=== PATIENT | male | born 1975 | race African-American/Black ===

== ENCOUNTER 2017-08-01 13:59 | Emergency (ER) | payer OTHER ==
[2017-08-01] MEDS ORDERED: Ketorolac Tromethamine 30 MG/ML VIAL ONE (16:11)
== END 2017-08-01 16:32 | disposition home or self-care (01) ==
LOC: ERS 13:59
DX: J06.9 Acute upper respiratory infection, unspecified (principal); G47.30 Sleep apnea, unspecified; F17.210 Nicotine dependence, cigarettes, uncomplicated
CPT/HCPCS: 96372; J1885

== ENCOUNTER 2019-06-21 13:54 | Observation (INO) | payer OTHER, SELFPAY ==
[2019-06-21 14:36] LABS: Bacteria/HPF None Seen HPF (None Seen); Bilirubin Negative (Negative); Blood, Urine Negative (Negative); Clarity Clear (Clear); Glucose, Urine (Dipstick) Normal (Negative); Leukocyte 25 Leu/uL (Negative); Nitrite Negative (Negative); Protein, Urine (Dipstick) Negative (Neg-Trace); RBC/HPF 0-3 HPF (0-3); Squamous Epithelial 0-3 HPF (0-3); Urobilinogen Normal mg/dL (Less than 2)
[2019-06-21] MEDS ORDERED: Aspirin Chewable 81 MG TAB ONE ×2 (17:45→17:46)
[2019-06-21] MEDS ORDERED: Nitroglycerin 0.4 MG TAB 1 EACH ONE (17:46)
--- NOTE | 2019-06-21 17:52 | RAD ---
Exam: Chest one view HISTORY:Right-sided chest pain, x1.5 weeks. Comparison: 08/30/2016 FINDINGS: Cardiac silhouette: Normal Aorta: Unremarkable Pulmonary vessels: Normal Costophrenic angles: Clear LUNGS: No masses or consolidation. Pneumothorax: None Osseous abnormalities: None IMPRESSION: No acute cardiopulmonary process.
[2019-06-21 18:01] LABS: #Basophils 0.1 thou/uL (0.0-0.2); #Eosinphils 0.5 thou/uL (0.0-0.7); #Lymphocytes 2.2 thou/uL (1.20-3.40); #Monocytes 0.8 thou/uL (0.11-0.59); #Neutrophils 4.9 thou/uL (1.40-6.50); %Basophils 0.6 % (0.0-1.0); %Eosinophils 5.9 % (0.0-10.0); %Lymphocytes 26.5 % (21.0-51.0); Hemoglobin 13.8 g/dL (14.0-18.0); Mean Corpuscular HGB CONC 31.3 g/dL (32.0-36.0); Mean Corpuscular Hemoglobin 28.5 pg (27.0-31.0); Mean Corpuscular Volume 91.1 fL (78.0-98.0); Mean Platelet Volume 7.9 fL (7.4-10.4); Platelet Count 256 thou/uL (130-400); RBC Distribution Width 11.3 % (11.5-14.5); Red Blood Cell (RBC) Count 4.83 mill/uL (4.70-6.10); White Blood Cell (WBC) Count 8.4 thou/uL (4.8-10.8)
[2019-06-21 18:20] LABS: ALT (SGPT) 23 U/L (8-55); AST (SGOT) 23 U/L (5-34); Albumin 4.3 g/dL (3.5-5.0); Alkaline Phosphatase 113 U/L (40-110); Anion Gap 11 mmol/L (10-20); BUN (Urea Nitrogen) 11 mg/dL (8.9-20.6); Bilirubin, Total 0.7 mg/dL (0.2-1.2); Calc. Creatinine Clearance 0 mL/min (70-130); Calcium 9.2 mg/dL (7.8-10.44); Carbon Dioxide 26 mmol/L (22-29); Chloride 106 mmol/L (98-107); Estimated GFR-MDRD Greater than 90; Globulin 3.1 g/dL (2.4-3.5); Glucose 86 mg/dL (70-105); Potassium 4.1 mmol/L (3.5-5.1); Protein, Total 7.4 g/dL (6.0-8.3); Sodium 139 mmol/L (136-145)
--- NOTE | 2019-06-21 18:34 | CT ---
Exam: Head CT without contrast HISTORY: Pain. COMPARISON: 09/03/2013 FINDINGS: Hemorrhage: No intraparenchymal hemorrhage or extra-axial hematoma. Brain parenchyma: Cortical casanova-white matter differentiation is preserved. No mass effect or midline shift. Basilar cisterns are patent. Ventricular system: Ventricles and sulci are patent and symmetric. Calvarium: Intact. Sinuses and mastoid air cells: Opacification the right maxillary sinus and mild mucosal thickening of the right ethmoid air cells. Right maxillary sinus opacification is noted on the previous exam. IMPRESSION: 1. No acute intracranial process. 2. Sinus opacification as above.
--- NOTE | 2019-06-21 19:31 | CT ---
Exam: Abdomen CT without contrast Pelvic CT without contrast HISTORY: Right-sided abdominal pain. Pain after urination. COMPARISON: None FINDINGS: Abdomen CT: Lung bases:Extensive bullous change in the lung bases Heart size: Normal heart size. No pericardial fluid Aorta: Normal caliber Solid organs: Limited evaluation by the lack of IV contrast. Grossly no solid organ abnormality Lymph nodes: No gastrohepatic, retrocrural or periportal lymphadenopathy Gallbladder: Unremarkable Mesentery: No mass, lymphadenopathy, free air or free fluid Kidneys: Bilaterally, no hydronephrosis, nephrolithiasis or perinephric fat stranding. Bilateral uret ers have a normal caliber. No hydroureter, periureteral fat stranding or ureterolithiasis. Alimentary canal: Limited evaluation by the lack of oral contrast. No evidence of small bowel obstruc tion. Unremarkable ileocecal junction. Scattered fecal material in a nondistended, nondilated colon. Diverticulosis, without diverticulitis. Normal caliber appendix. CT PELVIS: No mass, adenopathy, free air or free fluid. Unremarkable prostate gland. Urinary bladder: Decompressed urinary bladder, limiting evaluation Osseous structures: No lytic or blastic lesions. Vacuum disc phenomenon at the lumbosacral junction w ith chronic changes in the endplates. IMPRESSION: 1. No evidence of obstructive uropathy. 2. Normal caliber appendix. 3. Bullous change in the lung bases.
[2019-06-21 21:19] LABS: Troponin I 0.011 ng/mL (< 0.028)
[2019-06-21 22:55] VITALS: BMI 50.4
[2019-06-22] MEDS ORDERED: Nitroglycerin 0.4 MG TAB (25 Tab Bottle) ONE (06:11)
[2019-06-22] MEDS ORDERED: Acetaminophen 325 MG TAB PO PRN (09:26)
[2019-06-22] MEDS ORDERED: Ondansetron PF 4 MG/2 ML Vial IVP PRN (09:26)
[2019-06-22] MEDS ORDERED: Nitroglycerin 0.4 MG TAB (25 Tab Bottle) SL PRN (09:35)
--- NOTE | 2019-06-22 10:46 | ULT ---
US Abdominal: 06/22/2019 9:28 AM CLINICAL HISTORY: Abdominal pain. STUDY: Complete abdominal ultrasound COMPARISON: None. FINDINGS: Liver: Size: Normal. Echogenicity: Normal. Contour: Smooth. Mass: None. Common bile duct: 5 mm Gallbladder: Normal. Pancreas: Head, body, and tail appear normal. Inferior vena cava: Normal in caliber Aorta: Normal in caliber Spleen: No focal lesions. Spleen measuring 11.0 cm in length. Right kidney: No pelvicalyceal dilatation. Right kidney measuring 11.8 cm in length. Left kidney: No pelvicalyceal dilatation. Left kidney measuring 11.1 cm in length. 2.3 cm left renal cyst IMPRESSION: Left renal cyst
[2019-06-22] MEDS ORDERED: Regadenoson 0.4 MG/5 ML SYRINGE ONE (15:09)
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
[2019-06-22] MEDS: Mometasone/Formoterol 120 PUFF INHALER INH SCH (19:31)
[2019-06-22] MEDS ORDERED: FLU VACC QS2019-20(6MOS UP)/PF 60 MCG/0.5 ML SYRINGE IM ONE (21:00)
[2019-06-23 05:10] LABS: #Eosinphils 0.4 thou/uL (0.0-0.7); #Lymphocytes 1.8 thou/uL (1.20-3.40); #Monocytes 0.6 thou/uL (0.11-0.59); #Neutrophils 3.3 thou/uL (1.40-6.50); %Basophils 0.8 % (0.0-1.0); %Eosinophils 6.8 % (0.0-10.0); %Lymphocytes 29.6 % (21.0-51.0); %Monocytes 9.4 % (0.0-10.0); %Neutrophils 53.5 % (42.0-75.0); Hemoglobin 14.5 g/dL (14.0-18.0); Mean Corpuscular HGB CONC 32.2 g/dL (32.0-36.0); Mean Corpuscular Hemoglobin 29.4 pg (27.0-31.0); Mean Corpuscular Volume 91.6 fL (78.0-98.0); Platelet Count 243 thou/uL (130-400); RBC Distribution Width 11.3 % (11.5-14.5); Red Blood Cell (RBC) Count 4.93 mill/uL (4.70-6.10); White Blood Cell (WBC) Count 6.2 thou/uL (4.8-10.8)
[2019-06-23 05:26] LABS: Anion Gap 12 mmol/L (10-20); BUN (Urea Nitrogen) 10 mg/dL (8.9-20.6); Calc. Creatinine Clearance 247 mL/min (70-130); Carbon Dioxide 22 mmol/L (22-29); Chloride 108 mmol/L (98-107); Estimated GFR-MDRD Greater than 90; Glucose 88 mg/dL (70-105); Potassium 4.6 mmol/L (3.5-5.1); Sodium 137 mmol/L (136-145)
[2019-06-23] MEDS: Mometasone/Formoterol 120 PUFF INHALER INH SCH (06:56)
[2019-06-23] MEDS ORDERED: Aspirin 325 MG TAB PO SCH (09:00)
[2019-06-23] MEDS ORDERED: Enoxaparin Sodium 40 MG/0.4 ML SYRINGE SC SCH (09:00)
--- NOTE | 2019-06-23 09:51 | NM ---
EXAM: Nuclear medicine cardiac perfusion examination with ejection fraction HISTORY: Chest pain TECHNIQUE: Rest images: 30.9 mCi technetium 99m sestamibi Stress images: 30.2 mCi of technetium 9M sestamibi; Lexiscan COMPARISON: 07/19/2015 FINDINGS: Tomographic images: No fixed or reversible perfusion defects. Gated images: Normal wall motion and ejection fraction of 54%. EDV: 158 mL LHR: 0.4 TID: 1.0 IMPRESSION: No evidence of ischemia
[2019-06-23 15:48] VITALS: BP 164/85; TEMP 97.9
[2019-06-23] MEDS ORDERED: Hyoscyamine Sulfate SL 0.125 mg Tablet PO PRN (16:49)
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
== END 2019-06-23 19:05 | disposition home or self-care (01) ==
LOC: ERS 13:54 → 2SW 22:51
PROVIDERS: ADMIT Emergency Medicine; ATTEND Emergency Medicine
DX: R10.31 Right lower quadrant pain (principal); R07.9 Chest pain, unspecified; J45.909 Unspecified asthma, uncomplicated; G47.30 Sleep apnea, unspecified; I08.1 Rheumatic disorders of both mitral and tricuspid valves; E66.01 Morbid (severe) obesity due to excess calories; Z68.43 Body mass index [BMI] 50.0-59.9, adult; Z79.899 Other long term (current) drug therapy; Z91.018 Allergy to other foods; Z99.89 Dependence on other enabling machines and devices
CPT/HCPCS: 36415; 70450; 71045; 74176; 78452; 80048; 80053; 81003; 81015; 83880; 84484; 85025; 90471; 90686; 90732; 93005; 93017; 93306; 93975; A9500; G0008; G0009; G0378; J2785

== ENCOUNTER 2020-04-10 10:40 | Emergency (ER) | payer SELFPAY ==
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
== END 2020-04-10 13:26 | disposition home or self-care (01) ==
LOC: ERS 10:40
DX: M25.561 Pain in right knee (principal); J45.909 Unspecified asthma, uncomplicated; F17.290 Nicotine dependence, other tobacco product, uncomplicated

== ENCOUNTER 2020-06-30 16:29 | Emergency (ER) | payer OTHER, SELFPAY ==
[2020-06-30 21:49] LABS: SARS-CoV-2 PCR by NAA Not Detected (NotDetected)
== END 2020-06-30 16:50 | disposition home or self-care (01) ==
LOC: ERS 16:29
DX: R05 Cough (principal); Z20.822 Contact with and (suspected) exposure to COVID-19; J45.909 Unspecified asthma, uncomplicated; G47.30 Sleep apnea, unspecified
CPT/HCPCS: 87635; 99283; U0003; U0005

== ENCOUNTER 2020-08-15 14:20 | Emergency (ER) | payer SELFPAY ==
[2020-08-15] MEDS ORDERED: Metoclopramide HCl 10 MG/2 ML VIAL ONE (15:04)
[2020-08-15] MEDS ORDERED: Ketorolac Tromethamine 30 MG/ML VIAL ONE (15:04)
[2020-08-15] MEDS ORDERED: Dexamethasone 4 mg/ml Vial ONE (15:04)
[2020-08-15 15:26] LABS: #Basophils 0.1 thou/uL (0.0-0.2); #Eosinphils 0.3 thou/uL (0.0-0.7); #Lymphocytes 2.2 thou/uL (1.20-3.40); #Monocytes 0.7 thou/uL (0.11-0.59); #Neutrophils 4.7 thou/uL (1.40-6.50); %Eosinophils 3.3 % (0.0-10.0); %Lymphocytes 27.6 % (21.0-51.0); %Monocytes 9.2 % (0.0-10.0); %Neutrophils 58.8 % (42.0-75.0); Hemoglobin 13.6 g/dL (14.0-18.0); Mean Corpuscular HGB CONC 33.2 g/dL (32.0-36.0); Mean Corpuscular Hemoglobin 31.1 pg (27.0-31.0); Mean Corpuscular Volume 93.5 fL (78.0-98.0); Platelet Count 190 thou/uL (130-400); RBC Distribution Width 11.1 % (11.5-14.5); Red Blood Cell (RBC) Count 4.37 mill/uL (4.70-6.10)
[2020-08-15 15:56] LABS: ALT (SGPT) 29 U/L (8-55); AST (SGOT) 20 U/L (5-34); Albumin 4.2 g/dL (3.5-5.0); Alkaline Phosphatase 85 U/L (40-110); Anion Gap 11 mmol/L (10-20); BUN (Urea Nitrogen) 11 mg/dL (8.9-20.6); Bilirubin, Total 0.6 mg/dL (0.2-1.2); Calc. Creatinine Clearance 0 mL/min (70-130); Calcium 8.8 mg/dL (7.8-10.44); Carbon Dioxide 24 mmol/L (22-29); Chloride 108 mmol/L (98-107); Globulin 2.7 g/dL (2.4-3.5); Glucose 80 mg/dL (70-105); Potassium 3.9 mmol/L (3.5-5.1); Protein, Total 6.9 g/dL (6.0-8.3); Sodium 139 mmol/L (136-145)
== END 2020-08-15 14:21 | disposition home or self-care (01) ==
LOC: ERS 14:20
DX: R51.9 Headache, unspecified (principal); E78.5 Hyperlipidemia, unspecified; E78.00 Pure hypercholesterolemia, unspecified; J45.909 Unspecified asthma, uncomplicated
CPT/HCPCS: 70450; 80053; 85025; 96365; 96375; J1100; J1885; J2765

== ENCOUNTER 2023-11-21 11:37 | Emergency (ER) | payer OTHER, SELFPAY ==
[2023-11-21] MEDS ORDERED: predniSONE 20 MG TAB ONE (12:31)
[2023-11-21 12:50] LABS: #Basophils 0.07 10x3/uL (0.0-0.2); %Neutrophils 60.9 % (42.0-75.0); Hematocrit 42.1 % (42.0-52.0); Hemoglobin 13.2 g/dL (14.0-18.0); Mean Corpuscular HGB CONC 31.4 g/dL (32.0-36.0); Mean Corpuscular Hemoglobin 28.8 pg (27.0-31.0); Mean Corpuscular Volume 91.9 fL (78.0-98.0); Mean Platelet Volume 10.3 fL (7.4-10.4); Platelet Count 244 10x3/uL (130-400); RBC Distribution Width 12.2 % (11.5-14.5); Red Blood Cell (RBC) Count 4.58 mill/uL (4.70-6.10)
[2023-11-21 13:06] LABS: ALT (SGPT) 30 U/L (8-55); AST (SGOT) 26 U/L (5-34); Albumin 3.8 g/dL (3.5-5.0); Alkaline Phosphatase 90 U/L (40-110); Anion Gap 13 mmol/L (10-20); BUN (Urea Nitrogen) 7 mg/dL (8.9-20.6); Bilirubin, Total 0.5 mg/dL (0.2-1.2); Calc. Creatinine Clearance 0 mL/min (70-130); Calcium 9.2 mg/dL (7.8-10.44); Carbon Dioxide 25 mmol/L (22-29); Chloride 107 mmol/L (98-107); Estimated GFR 99; Globulin 3.2 g/dL (2.4-3.5); Glucose 93 mg/dL (70-105); Sodium 141 mmol/L (136-145)
[2023-11-21 13:10] LABS: Troponin I Less than 0.010 ng/mL (< 0.028)
[2023-11-21] MEDS ORDERED: Aspirin Chewable 81 MG TAB ONE (13:37)
== END 2023-11-21 16:36 | disposition home or self-care (01) ==
LOC: ERS 11:37
DX: J45.901 Unspecified asthma with (acute) exacerbation (principal); J18.9 Pneumonia, unspecified organism; I10 Essential (primary) hypertension; R20.2 Paresthesia of skin; E78.00 Pure hypercholesterolemia, unspecified; F17.210 Nicotine dependence, cigarettes, uncomplicated; G47.30 Sleep apnea, unspecified; Z55.6 Problems related to health literacy; Z79.84 Long term (current) use of oral hypoglycemic drugs; Z79.899 Other long term (current) drug therapy
CPT/HCPCS: 36415; 70450; 71045; 80053; 83735; 83880; 84484; 85025; 85379; 93005; J7512

== ENCOUNTER 2025-04-30 06:39 | Emergency (ER) | payer OTHER ==
[2025-04-30] MEDS ORDERED: diphenhydrAMINE 50 MG/ML VIAL ONE (07:41)
[2025-04-30] MEDS ORDERED: Acetaminophen 500 MG TAB ONE (07:41)
[2025-04-30 07:42] LABS: #Basophils 0.04 10x3/uL (0.0-0.2); #Eosinophils 0.24 10x3/uL (0.0-0.7); #Monocytes 0.44 10x3/uL (0.11-0.59); #Neutrophils 3.93 10x3/uL (1.40-6.50); %Basophils 0.7 % (0.0-1.0); %Eosinophils 4.1 % (0.0-10.0); %Lymphocytes 19.9 % (21.0-51.0); %Monocytes 7.6 % (0.0-10.0); %Neutrophils 67.5 % (42.0-75.0); Hematocrit 40.8 % (42.0-52.0); Hemoglobin 12.5 g/dL (14.0-18.0); Mean Corpuscular Hemoglobin 27.7 pg (27.0-31.0); Mean Corpuscular Volume 90.5 fL (78.0-98.0); Platelet Count 209 10x3/uL (130-400); Red Blood Cell (RBC) Count 4.51 mill/uL (4.70-6.10); White Blood Cell (WBC) Count 5.82 10x3/uL (4.8-10.8)
[2025-04-30] MEDS ORDERED: Metoclopramide HCl 10 MG (2 mL) VIAL ONE (07:42)
[2025-04-30 08:03] LABS: ALT (SGPT) 23 U/L (Less than 45); AST (SGOT) 17 U/L (11-34); Albumin 3.9 g/dL (3.1-4.5); Alkaline Phosphatase 98 U/L (40-110); Anion Gap 11 mmol/L (10-20); BUN (Urea Nitrogen) 6 mg/dL (8.9-20.6); Bilirubin, Total 0.6 mg/dL (0.3-1.2); Calc. Creatinine Clearance 0 mL/min (70-130); Calcium 8.9 mg/dL (7.8-10.44); Carbon Dioxide 24 mmol/L (22-29); Chloride 111 mmol/L (98-107); Globulin 2.7 g/dL (2.4-3.5); Glucose 123 mg/dL (70-105); Potassium 3.9 mmol/L (3.5-5.1); Sodium 142 mmol/L (136-145)
[2025-04-30] MEDS ORDERED: Iopamidol-370 76% 500 ML MDV (1 ML CHARGE) ONE (13:23)
== END 2025-04-30 09:18 | disposition home or self-care (01) ==
LOC: ERS 06:39
DX: R51.9 Headache, unspecified (principal); I10 Essential (primary) hypertension
CPT/HCPCS: 70450; 70496; 70498; 80053; 85025; 96365; 96375; J1200; J2765; Q9967